=== PATIENT | female | born 1955 | race Caucasian/White ===

== ENCOUNTER 2020-04-13 07:56 | Day surgery (SDC) | payer MEDICARE ==
[2020-04-10 16:42] LABS: BASOPHILS # (AUTO) 0.02 x10^3/uL (0-0.1); BASOPHILS % (AUTO) 1 % (0-1); EOSINOPHILS # (AUTO) 0.06 x10^3/uL (0-0.4); EOSINOPHILS % (AUTO) 1 % (1-7); LYMPHOCYTES # (AUTO) 1.51 x10^3/uL (1-3.4); LYMPHOCYTES % (AUTO) 34 % (22-44); MD NO; MEAN CORPUSCULAR HEMOGLOBIN 32.3 pg (27.0-34.8); MEAN CORPUSCULAR HGB CONC 33.8 g/dL (32.4-35.8); MEAN CORPUSCULAR VOLUME 95.7 fL (80-100); MEAN PLATELET VOLUME 9.4 fL (7.4-10.4); MONOCYTES # (AUTO) 0.28 x10^3/uL (0.2-0.8); MONOCYTES % (AUTO) 6 % (2-9); NEUTROPHILS # (AUTO) 2.55 x10^3/uL (1.8-6.8); NEUTROPHILS % (AUTO) 58 % (42-75); PLATELET COUNT 217 x10^3/uL (130-400); RED BLOOD COUNT 4.48 x10^6/uL (3.82-5.3); RED CELL DISTRIBUTION WIDTH 12.6 % (9.6-15.2)
[~2020-04-13] VITALS: Ht 172.7 cm; Wt 71.1 kg
[~2020-04-13 07:56] MED LIST: BACITRACIN 50,000 UNIT ONE; BUPIVACAINE/EPI 0.5% 1:200K ONE; CEFAZOLIN 1,000 MG ONE; GENTAMICIN 80 MG/2 ML ONE; ISOSULFAN BLUE 10 MG/ML, 5ML IV ONE; NONE PER PT
[2020-04-13] MEDS ORDERED: LIDOCAINE-MPF 1%, 5ML ONE (08:05)
[2020-04-13 08:18] VITALS: BP 120/75
[2020-04-13] MEDS ORDERED: LACTATED RINGERS 1,000 ML IV SCH (08:20)
[2020-04-13] MEDS ORDERED: CHLORHEXIDINE 15 ML UDC MM ONE (08:30)
[2020-04-13] MEDS ORDERED: FENTANYL PF 250 MCG/5ML ONE (09:37)
[2020-04-13] MEDS ORDERED: MIDAZOLAM 1 MG/ML, 2ML ONE (09:38)
[2020-04-13] MEDS ORDERED: PROPOFOL 50 ML ONE ×2 (09:41→11:09)
[2020-04-13] MEDS ORDERED: EPHEDRINE 50 MG/ML, 1ML ONE (09:56)
[2020-04-13] MEDS ORDERED: METOCLOPRAMIDE 5 MG/ML, 2ML ONE (09:56)
[2020-04-13] MEDS ORDERED: PROMETHAZINE 25 MG/ML, 1ML IVPush PRN (10:00)
[2020-04-13] MEDS ORDERED: LABETALOL 5MG/ML, 20ML IV PRN (10:00)
[2020-04-13] MEDS ORDERED: MEPERIDINE/PF 25MG/0.5ML IVPush PRN (10:00)
[2020-04-13] MEDS ORDERED: HYDROcodone/APAP 7.5-325MG/15ML UDC PO PRN (10:00)
[2020-04-13] MEDS ORDERED: HYDROmorphone 1 MG/ML, 1ML INJ IVPush PRN (10:00)
[2020-04-13] MEDS ORDERED: hydrALAzine 20 MG/ML, 1ML IV PRN (10:00)
[2020-04-13] MEDS ORDERED: KETOROLAC 30 MG/1 ML IV PRN (10:00)
[2020-04-13] MEDS ORDERED: ALBUTEROL SULFATE 2.5 MG/3 ML NPPB PRN (10:00)
[2020-04-13] MEDS ORDERED: ONDANSETRON 2MG/ML, 2ML ONE (11:31)
[2020-04-13] MEDS ORDERED: PROPOFOL 10 MG/ML, 20ML ONE (11:31)
[2020-04-13] MEDS ORDERED: NEOSTIGMINE 1 MG/ML, 10ML ONE (11:31)
[2020-04-13] MEDS ORDERED: ROCURONIUM 10MG/ML,5ML ONE (11:31)
[2020-04-13] MEDS ORDERED: DEXAMETHASONE 4 MG/ML, 1ML ONE (11:31)
[2020-04-13] MEDS ORDERED: CEFAZOLIN 1,000 MG ONE (11:31)
[2020-04-13] MEDS ORDERED: SUCCINYLCHOLINE 20 MG/ML, 10ML ONE (11:31)
[2020-04-13] MEDS ORDERED: GLYCOPYRROLATE 0.2MG/1ML, 5ML ONE (11:31)
[2020-04-13] MEDS ORDERED: FENTANYL PF 100 MCG/2ML ONE (12:07)
[2020-04-13] MEDS ORDERED: OXYcodone 5 MG/5 ML ORAL.SOL UDC ONE (12:07)
[2020-04-13] MEDS ORDERED: HYDROcodone/APAP 7.5-325MG/15ML UDC ONE (12:09)
[2020-04-13] MEDS: FENTANYL PF 100 MCG/2ML IV PRN ×2 (12:14→12:20)
== END 2020-04-13 14:44 | disposition home or self-care (01) ==
LOC: OUT 07:56 → EDSTATUS 10:30 → OUT 14:44
PROVIDERS: ATTEND Surgery
DX: C50.111 Malignant neoplasm of central portion of right female breast (principal); Z42.1 Encounter for breast reconstruction following mastectomy; Z20.828 Contact with and (suspected) exposure to other viral communicable diseases; C50.311 Malignant neoplasm of lower-inner quadrant of right female breast; N60.81 Other benign mammary dysplasias of right breast; Z17.0 Estrogen receptor positive status [ER+]; Z79.899 Other long term (current) drug therapy
CPT/HCPCS: 15570; 19301; 19316; 19371; 36415; 38525; 38792; 76098; 85025; 87635; 88307; 88329; 88331; 88333; 93005; A9541; C1729; J0330; J0690; J1100; J1580; J2250; J2405; J2704; J2710; J2765; J3010; J7120

== ENCOUNTER → 2020-10-27 | Outpatient (CLI) | payer MEDICARE ==
[~2020-10-27] MED LIST changes: +ALEN70TA3 PO; +ANAS1TAB49 PO; -BACITRACIN 50,000 UNIT ONE; -BUPIVACAINE/EPI 0.5% 1:200K ONE; +CALC500T93 PO; -CEFAZOLIN 1,000 MG ONE; +CHOL10003 PO; -GENTAMICIN 80 MG/2 ML ONE; -ISOSULFAN BLUE 10 MG/ML, 5ML IV ONE; +ZINC30TA2 PO; +[UNRECOGNIZED DRUG - CODE] PO
[2020-10-27 15:31] LABS: BASOPHILS % (AUTO) 1 % (0-1); EOSINOPHILS % (AUTO) 2 % (1-7); LYMPHOCYTES % (AUTO) 32 % (22-44); MEAN CORPUSCULAR HGB CONC 34.6 g/dL (32.4-35.8); MEAN PLATELET VOLUME 7.9 fL (7.4-10.4); MONOCYTES % (AUTO) 8 % (2-9); NEUTROPHILS % (AUTO) 57 % (42-75); PLATELET COUNT 225 x10^3/uL (130-400); RED BLOOD COUNT 4.74 x10^6/uL (3.82-5.3); RED CELL DISTRIBUTION WIDTH 13.3 % (9.6-15.2)
[2020-10-27 15:33] LABS: MD NO
== END | disposition home or self-care (01) ==
LOC: STAR 14:02
PROVIDERS: ATTEND Plastic Surgery
DX: Z01.818 Encounter for other preprocedural examination (principal); C50.111 Malignant neoplasm of central portion of right female breast; Z85.828 Personal history of other malignant neoplasm of skin; Z20.822 Contact with and (suspected) exposure to COVID-19
CPT/HCPCS: 36415; 85025; 93005; U0003

== ENCOUNTER 2020-11-02 10:38 | Day surgery (SDC) | payer MEDICARE ==
[~2020-11-02] VITALS: Ht 172.7 cm; Wt 70.6 kg
[2020-11-02] MEDS ORDERED: CHLORHEXIDINE 15 ML UDC PO ONE (11:00)
[2020-11-02] MEDS ORDERED: LACTATED RINGERS 1,000 ML IV SCH (11:00)
[2020-11-02] MEDS ORDERED: SCOP1PAT11 TD (11:01)
[2020-11-02 11:16] VITALS: BP 128/81
[2020-11-02] MEDS ORDERED: BUPIVACAINE/PF 0.5% ONE (11:32)
[2020-11-02] MEDS ORDERED: CEFAZOLIN 1,000 MG ONE (11:33)
[2020-11-02] MEDS ORDERED: LIDOCAINE-MPF 2% ,5ML ONE ×2 (11:33→11:34)
[2020-11-02] MEDS ORDERED: GENTAMICIN 80 MG/2 ML ONE (11:33)
[2020-11-02] MEDS ORDERED: BACITRACIN 50,000 UNIT ONE (11:33)
[2020-11-02] MEDS ORDERED: SODIUM BICARBONATE 1 MEQ/ML, 50ML VIAL ONE (11:33)
[2020-11-02] MEDS ORDERED: EPINEPHRINE 1 MG/ML, 1ML ONE (11:33)
[2020-11-02] MEDS ORDERED: MIDAZOLAM 1 MG/ML, 2ML ONE (12:23)
[2020-11-02] MEDS ORDERED: FENTANYL PF 250 MCG/5ML ONE (12:23)
[2020-11-02] MEDS ORDERED: PROPOFOL 50 ML ONE ×2 (13:16→14:19)
[2020-11-02] MEDS ORDERED: DEXAMETHASONE 4 MG/ML, 1ML ONE (13:33)
[2020-11-02] MEDS ORDERED: ONDANSETRON 2MG/ML, 2ML ONE (13:33)
[2020-11-02] MEDS ORDERED: HYDROmorphone 1 MG/ML, 1ML INJ IVPush PRN (14:00)
[2020-11-02] MEDS ORDERED: OXYcodone 5 MG/5 ML ORAL.SOL UDC PO PRN (14:00)
[2020-11-02] MEDS ORDERED: LABETALOL 5MG/ML, 20ML IV PRN (14:00)
[2020-11-02] MEDS ORDERED: EPHEDRINE 50 MG/ML, 1ML IM PRN (14:00)
[2020-11-02] MEDS ORDERED: MEPERIDINE/PF 25MG/0.5ML IVPush PRN (14:00)
[2020-11-02] MEDS ORDERED: DIPHENHYDRAMINE 50 MG/ML, 1ML IVPush PRN (14:00)
[2020-11-02] MEDS ORDERED: EPHEDRINE 50 MG/ML, 1ML IVPush PRN (14:00)
[2020-11-02] MEDS ORDERED: ONDANSETRON 2MG/ML, 2ML IVPush PRN (14:00)
[2020-11-02] MEDS ORDERED: DIAZEPAM 5 MG/ML, 2ML IVPush PRN (14:00)
[2020-11-02] MEDS ORDERED: ACETAMINOPHEN 325 MG TABLET PO PRN (14:00)
[2020-11-02] MEDS ORDERED: ACETAMINOPHEN 650 MG/20.3 ML UDC ONE (14:59)
[2020-11-02] MEDS ORDERED: OXYcodone 5 MG/5 ML ORAL.SOL UDC ONE (15:00)
[2020-11-02] MEDS ORDERED: FENTANYL PF 100 MCG/2ML ONE (15:00)
[2020-11-02] MEDS: FENTANYL PF 100 MCG/2ML IV PRN ×2 (15:02→15:28)
[2020-11-02] MEDS ORDERED: PROMETHAZINE 25 MG/ML, 1ML ONE (15:12)
[2020-11-02] MEDS: PROMETHAZINE 25 MG/ML, 1ML IVPush PRN ×2 (15:14→15:44)
== END 2020-11-02 17:00 | disposition home or self-care (01) ==
LOC: OUT 10:38
PROVIDERS: ATTEND Plastic Surgery
DX: Z45.812 Encounter for adjustment or removal of left breast implant (principal); Z79.899 Other long term (current) drug therapy; Z90.11 Acquired absence of right breast and nipple; Z88.6 Allergy status to analgesic agent
CPT/HCPCS: 11970; 15570; 15771; 15772; C1789; J0171; J0690; J1100; J1580; J2250; J2405; J2550; J2704; J3010; J7120

== ENCOUNTER 2021-01-25 13:35 | Day surgery (SDC) | payer MEDICARE ==
[2021-01-23 13:23] LABS: BASOPHILS % (AUTO) 1 % (0-1); EOSINOPHILS % (AUTO) 2 % (1-7); LYMPHOCYTES % (AUTO) 28 % (22-44); MEAN CORPUSCULAR HEMOGLOBIN 32.5 pg (27.0-34.8); MEAN CORPUSCULAR HGB CONC 34.9 g/dL (32.4-35.8); MONOCYTES % (AUTO) 6 % (2-9); NEUTROPHILS % (AUTO) 63 % (42-75); PLATELET COUNT 211 x10^3/uL (130-400); RED BLOOD COUNT 4.24 x10^6/uL (3.82-5.3); RED CELL DISTRIBUTION WIDTH 13.3 % (9.6-15.2)
[~2021-01-25] VITALS: Ht 172.7 cm; Wt 70.7 kg
[~2021-01-25 13:35] MED LIST changes: +BACITRACIN 50,000 UNIT ONE; +BUPIVACAINE/PF 0.5% ONE; +CEFAZOLIN 1,000 MG ONE; +EPINEPHRINE 1 MG/ML, 1ML ONE; +GENTAMICIN 80 MG/2 ML ONE; +LORA10CA PO; +ROPIvacaine/PF 0.5%, 30 ML ONE; +SCOP1PAT11 TD
[2021-01-25] MEDS ORDERED: CHLORHEXIDINE 15 ML UDC PO ONE (14:00)
[2021-01-25] MEDS ORDERED: LACTATED RINGERS 1,000 ML IV SCH (14:00)
[2021-01-25] MEDS ORDERED: CHLORHEXIDINE 15 ML UDC ONE (14:03)
[2021-01-25 14:10] VITALS: BP 130/79
[2021-01-25] MEDS ORDERED: MIDAZOLAM 1 MG/ML, 2ML ONE (15:14)
[2021-01-25] MEDS ORDERED: PROPOFOL 10 MG/ML, 20ML ONE (15:15)
[2021-01-25] MEDS ORDERED: FENTANYL PF 250 MCG/5ML ONE (15:15)
[2021-01-25] MEDS ORDERED: SUCCINYLCHOLINE 20 MG/ML, 10ML ONE (16:40)
[2021-01-25] MEDS ORDERED: CEFAZOLIN 1,000 MG ONE (17:15)
[2021-01-25] MEDS ORDERED: LIDOCAINE-MPF 2% ,5ML ONE (17:15)
[2021-01-25] MEDS ORDERED: DEXAMETHASONE 4 MG/ML, 5ML ONE (17:15)
[2021-01-25] MEDS ORDERED: ONDANSETRON 2MG/ML, 2ML ONE ×2 (17:16→17:47)
[2021-01-25] MEDS ORDERED: OXYcodone 5 MG/5 ML ORAL.SOL UDC PO PRN (17:30)
[2021-01-25] MEDS ORDERED: DIPHENHYDRAMINE 50 MG/ML, 1ML IVPush PRN (17:30)
[2021-01-25] MEDS ORDERED: MEPERIDINE/PF 25MG/0.5ML IVPush PRN (17:30)
[2021-01-25] MEDS ORDERED: DIAZEPAM 5 MG/ML, 2ML IVPush PRN (17:30)
[2021-01-25] MEDS ORDERED: ACETAMINOPHEN 325 MG TABLET PO PRN (17:30)
[2021-01-25] MEDS ORDERED: ONDANSETRON 2MG/ML, 2ML IVPush PRN (17:30)
[2021-01-25] MEDS ORDERED: FENTANYL PF 100 MCG/2ML IV PRN (17:30)
[2021-01-25] MEDS ORDERED: HYDROmorphone 1 MG/ML, 1ML INJ IVPush PRN (17:30)
[2021-01-25] MEDS ORDERED: PROMETHAZINE 25 MG/ML, 1ML IVPush PRN (18:00)
[2021-01-25] MEDS ORDERED: PROMETHAZINE 25 MG/ML, 1ML ONE (18:01)
== END 2021-01-25 19:00 | disposition home or self-care (01) ==
LOC: OUT 13:35 → EDSTATUS 16:30 → OUT 19:00
PROVIDERS: ATTEND Plastic Surgery
DX: N65.1 Disproportion of reconstructed breast (principal); Z20.822 Contact with and (suspected) exposure to COVID-19; Z79.899 Other long term (current) drug therapy; Z85.3 Personal history of malignant neoplasm of breast; Z88.8 Allergy status to other drugs, medicaments and biological substances; Z90.11 Acquired absence of right breast and nipple
CPT/HCPCS: 15570; 19350; 36415; 85025; J0171; J0330; J0690; J1100; J2250; J2405; J2550; J2704; J3010; U0003; U0005; J2795; J1580